=== PATIENT | female | born 1925 | race Caucasian/White ===

== ENCOUNTER 2016-11-29 14:15 | Inpatient (IN) | payer MEDICARE ==
[~2016-11-29] VITALS: Ht 160 cm; Wt 60.5 kg
[2016-11-30] MEDS ORDERED: GLIM1TAB PO ×2 (11:19)
[2016-11-30] MEDS ORDERED: GABA600T PO (11:19)
[2016-11-30] MEDS ORDERED: ASPI-110 PO (11:19)
[2016-11-30] MEDS ORDERED: VITA10002 PO (11:19)
[2016-11-30] MEDS ORDERED: LISI10TA3 PO (11:19)
[2016-11-30] MEDS ORDERED: OMEP40CA2 PO (11:19)
[2016-11-30] MEDS ORDERED: METF850T PO (11:19)
[2016-11-30] MEDS ORDERED: MULT1TAB PO (11:19)
[2016-11-30] MEDS ORDERED: ASCO1CAP PO (11:19)
[2016-11-30] MEDS ORDERED: VITA20003 PO (11:19)
[2016-11-30] MEDS ORDERED: AMLO2.5T PO (11:19)
[2016-11-30] MEDS ORDERED: ATOR20TA15 PO (11:19)
[2016-11-30] MEDS ORDERED: LEVO88TA2 PO (11:19)
[2016-12-07] VITALS (11 sets, daily range): BP systolic 108–140; BP diastolic 46–63; PULSE 62–102; RESP 16–20; TEMP 97.5–98; O2SAT 93–100
[2016-12-07] MEDS ORDERED: ePHEDrine/NS 25 MG/5 ML SYR IV ONE (12:00)
[2016-12-07] MEDS ORDERED: LACTATED RINGER'S 1000 ML INJ 1,000 ML IV ONE (12:00)
[2016-12-07] MEDS ORDERED: PROPOFOL 200 MG/20 ML AMP IV ONE (12:00)
[2016-12-07] MEDS ORDERED: VECURONIUM BROMIDE 20 MG VIAL IV ONE (12:00)
[2016-12-07] MEDS ORDERED: ALVIMOPAN 12 MG CAPSULE - On Call PO SCH (12:00)
[2016-12-07] MEDS ORDERED: DEXT 5%-NACL 0.9% 1000 ML INJ 1,000 ML IV SCH (12:00)
[2016-12-07] MEDS ORDERED: ONDANSETRON HCL 4 MG/2 ML VIAL IV PUSH ONE (12:00)
[2016-12-07] MEDS ORDERED: NEOSTIGMINE 3 MG/3 ML SYR IV ONE (12:00)
[2016-12-07] MEDS ORDERED: PHENYLEPH/NS 1000 MCG/10 ML SYR IV ONE (12:00)
[2016-12-07] MEDS ORDERED: METRONIDAZOLE 500 MG/100 ML ISONTONIC SOLN IV SCH (12:15)
[2016-12-07] MEDS ORDERED: LACTATED RINGER'S 1000 ML IV PRN (12:15)
[2016-12-07] MEDS ORDERED: SODIUM CHLORID 0.9% 500 ML IV PRN (12:15)
[2016-12-07] MEDS ORDERED: POVIDONE IODINE 5% (ANTISEPSIS KIT) 4 APPLICATIONS EACH NARE PRN (12:15)
[2016-12-07] MEDS ORDERED: CHLORHEXIDINE GLUCONATE 2 % 1 PACK (2 CLOTHS) TOPICAL PRN (12:15)
[2016-12-07] MEDS ORDERED: ceFAZolin 1,000 MG/NS 100 ML IV SCH ×2 (12:15)
[2016-12-07] MEDS ORDERED: METOPROLOL TARTRATE 25 MG TAB PO PRN (12:15)
[2016-12-07] MEDS: D5-LR + KCL 20 MEQ INJ 1,000 ML IV SCH ×2 (15:09→23:10)
[2016-12-07] MEDS ORDERED: DO NOT ADM ANY ANTICOAGULANT DRUGS PRN (15:10)
[2016-12-07] MEDS ORDERED: ONDANSETRON HCL 4 MG/2 ML VIAL IV PRN (15:15)
[2016-12-07] MEDS ORDERED: MORPHINE SULFATE 30 MG/30 ML PCA IV SCH (15:15)
[2016-12-07] MEDS ORDERED: NALOXONE HCL 0.4 MG/ML AMP IV PRN (15:15)
[2016-12-07] MEDS ORDERED: ENALAPRILAT 1.25 MG/ML VIAL IV PRN (15:15)
[2016-12-07] MEDS ORDERED: POTASSIUM CHLOR 20 MEQ PREMIX 100 ML IV PRN (15:15)
[2016-12-07] MEDS ORDERED: ZOLPIDEM TARTRATE 5 MG TAB PO PRN (15:15)
[2016-12-07] MEDS ORDERED: Post-op Orders (for Pharmacy) MISC XX ONE (15:15)
[2016-12-07] MEDS ORDERED: ACETAMINOPHEN/HYDROcodone 325 MG/5 MG TAB PO PRN ×2 (15:15)
[2016-12-07] MEDS ORDERED: GLUCAGON 1 MG/ML VIAL OTHER PRN (15:15)
[2016-12-07] MEDS ORDERED: DEXTROSE 50% IN WATER 50 ML VIAL(D50) IV PUSH PRN (15:15)
[2016-12-07] MEDS ORDERED: POTASSIUM CHLOR 40 MEQ PREMIX 100 ML IV PRN (15:15)
[2016-12-07] MEDS ORDERED: BENZOCAINE 6 MG/MENTHOL 10 MG LOZENGE BUCCAL PRN (15:15)
[2016-12-07] MEDS ORDERED: SODIUM CHLORIDE 0.9% FLUSH 10 ML FLUSH IV FLUSH PRN (15:15)
[2016-12-07] MEDS ORDERED: fentaNYL CITRATE 250 MCG/5 ML AMP ONE (15:19)
[2016-12-07 15:59] LABS: AUTOMATED NEUTROPHIL # 14.9 TH/MM3 (1.8-7.7); BASOPHIL # 0.1 TH/MM3 (0-0.2); BASOPHIL % 0.5 % (0.0-2.0); EOSINOPHIL # 0.1 TH/MM3 (0-0.4); EOSINOPHIL % 0.8 % (0.0-4.0); HEMATOCRIT 31.9 % (35.0-46.0); HEMO FLAGS DIFF FINAL; LYMPH % 15.4 % (9.0-44.0); LYMPHOCYTE # 2.9 TH/MM3 (1.0-4.8); MEAN CELL VOLUME 86.1 FL (80.0-100.0); MEAN CORPUSCULAR HEMOGLOBIN 27.7 PG (27.0-34.0); MEAN CORPUSCULAR HGB CONC 32.2 % (32.0-36.0); MONO % 3.1 % (0.0-8.0); NEUT % 80.2 % (16.0-70.0); PLATELET COUNT 297 TH/MM3 (150-450); RED CELL DISTRIBUTION WIDTH 14.2 % (11.6-17.2); WHITE BLOOD COUNT 18.6 TH/MM3 (4.0-11.0)
[2016-12-07] MEDS: INSULIN NovoLIN REGULAR SUPPLEMENTAL SCALE SQ SCH ×2 (16:00→21:00)
[2016-12-07] MEDS ORDERED: PILL SPLITTER OTHER PRN (16:00)
[2016-12-07 16:17] LABS: POTASSIUM 3.7 MEQ/L (3.5-5.1)
[2016-12-07] MEDS: METOCLOPRAMIDE HCL 10 MG/2 ML VIAL IVS SCH (18:02)
[2016-12-07] MEDS: INSULIN HUMAN REGULAR 1,000 UNITS/10 ML VIAL SQ PRN (18:02)
[2016-12-07] MEDS: ATORVASTATIN 20 MG TAB PO SCH ×2 (20:45→20:53)
[2016-12-07] MEDS: SODIUM CHLORIDE 0.9% FLUSH 10 ML FLUSH IV FLUSH SCH (20:45)
[2016-12-07] MEDS: FUROSEMIDE 20 MG/2 ML VIAL IV SCH (20:45)
[2016-12-07] MEDS: GABAPENTIN 300 MG CAP PO SCH ×2 (20:45→20:53)
--- NOTE | 2016-12-07 21:16 | MP ---
cc: KELY IBARRA MD, HASSAN MD ARGUELLO, MARTHA M.D. 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 ANESTHESIA General endotracheal ESTIMATED BLOOD LOSS 25 mL. OPERATING TIME 50 minutes. 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 For this reason colectomy was recommended. Preoperative CT scan was negative for metastatic disease. 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 No metastases were palpable in the liver, gallbladder, uterus, ovaries or the peritoneal cavity. The remainder of the colon and small bowel was all palpably normal. OPERATIVE TECHNIQUE The patient was placed on the table in supine position. After adequate general endotracheal anesthesia, the abdomen was prepped and draped in usual manner. Transverse infraumbilical skin incision was made on the right side of the abdomen, taken down through subcutaneous tissue and rectus muscles and peritoneal cavity was entered with the above-mentioned findings. The cecum was mobilized along its peritoneal reflection and the ascending colon was likewise mobilized. There was a piece of omentum stuck to the cecum and the area of the omentum was divided with electrocautery that 2 inches from where it was stuck to the cecum. The serosal surface of the cecum was puckered where the tumor was located. There did not appear to be definite full-thickness tumor present. There were no palpable lymph nodes. Once the cecum was mobilized and the ascending colon was mobilized and the transverse colon lesser sac was entered posterior to the stomach, the right portion of the transverse colon was chosen for division. It was to the right of most of the middle colic branches and the marginal vessel was clamped, cut and ligated and the proximal transverse colon was divided with an Ethicon BRIGIDA 55 stapling device. Next, our attention was turned to the terminal ileum and the terminal ileum was cleared and the terminal ileum was divided between Mera clamps. Once this was done, the mesentery was opened along the small bowel and then the ileocolic vessels were doubly clamped, cut and doubly ligated at their origin. The specimen was then removed from the table. The anastomosis was made along the anti-mesenteric borders of the small bowel and the proximal transverse colon with an Ethicon BRIGIDA 55 stapling device and the colotomy was closed with a TX 60 blue staple height stapling device. Once this was done, the opening in the mesentery was approximated with running 3-0 Vicryl suture in a simple running manner. Hemostasis was maintained throughout with electrocautery and ligature. The bowel was replaced in abdominal cavity in an mangle roll operator manner and the omentum was wrapped around the anastomosis. The abdominal cavity was then closed in layers using double-stranded #1 PDS for the posterior rectus sheath. The muscle layers were then irrigated thoroughly with saline solution, aspirated dry and then the anterior rectus sheath was closed with double-stranded #1 PDS as well and the subcutaneous tissue was irrigated thoroughly with a liter of saline solution, aspirated dry. Skin was closed with running 3-0 Vicryl subcuticular suture and a dressing was applied. Sponge, needle and instrument counts were reported as correct. Estimated blood loss was 25 mL. Operating time was 50 minutes. The patient tolerated the procedure well and left the operating room in good condition. MD MARC Aguirre/ /3:16 PM /9:03 PM
[2016-12-07] MEDS: PCA - TOTAL MG MORPHINE DELIVERED PER SHIFT SCH (22:00)
[2016-12-07] MEDS: metroNIDAZOLE 500 MG INJ 100 ML IV SCH (22:05)
[2016-12-08] VITALS (15 sets, daily range): BP systolic 112–159; BP diastolic 59–70; PULSE 72–97; RESP 16–18; TEMP 96.9–98.9; O2SAT 94–98
[2016-12-08] MEDS: metroNIDAZOLE 500 MG INJ 100 ML IV SCH ×2 (04:49→11:46)
[2016-12-08] MEDS: LEVOTHYROXINE SODIUM 88 MCG TAB PO SCH (05:11)
[2016-12-08] MEDS: METOCLOPRAMIDE HCL 10 MG/2 ML VIAL IVS SCH ×5 (05:11→23:25)
[2016-12-08] MEDS: PCA - TOTAL MG MORPHINE DELIVERED PER SHIFT SCH ×3 (05:30→21:40)
[2016-12-08 05:45] LABS: AUTOMATED NEUTROPHIL # 12.8 TH/MM3 (1.8-7.7); BASOPHIL % 0.1 % (0.0-2.0); HEMATOCRIT 30.8 % (35.0-46.0); HEMO FLAGS DIFF FINAL; LYMPHOCYTE # 1.3 TH/MM3 (1.0-4.8); MEAN CORPUSCULAR HEMOGLOBIN 27.9 PG (27.0-34.0); MEAN CORPUSCULAR HGB CONC 32.4 % (32.0-36.0); MONO % 4.7 % (0.0-8.0); NEUT % 86.2 % (16.0-70.0); PLATELET COUNT 321 TH/MM3 (150-450); RED BLOOD COUNT 3.58 MIL/MM3 (4.00-5.30); RED CELL DISTRIBUTION WIDTH 14.1 % (11.6-17.2); WHITE BLOOD COUNT 14.9 TH/MM3 (4.0-11.0)
[2016-12-08] MEDS: INSULIN NovoLIN REGULAR SUPPLEMENTAL SCALE SQ SCH ×4 (06:15→21:00)
[2016-12-08 06:18] LABS: BICARBONATE 27.8 MEQ/L (21.0-32.0); POTASSIUM 4.4 MEQ/L (3.5-5.1)
--- NOTE | 2016-12-08 08:20 | HHI.PR ---
Subjective Remarks No N or V. Not much pain Objective Vital Signs Date Time Temp Pulse Resp B/P Pulse Ox O2 Delivery O2 Flow Rate FiO2 12/08/16 08:05 98 12/08/16 06:26 78 12/08/16 05:30 16 12/08/16 05:28 72 12/08/16 05:01 95 12/08/16 04:00 72 12/08/16 03:18 74 12/08/16 03:15 98.1 78 16 112/59 94 12/08/16 02:04 77 12/08/16 01:01 74 12/08/16 00:00 72 12/07/16 23:37 97.5 97 16 108/54 94 12/07/16 23:00 70 12/07/16 22:00 80 12/07/16 22:00 16 12/07/16 21:00 78 12/07/16 20:00 102 12/07/16 19:55 97.5 96 16 140/59 93 12/07/16 19:00 85 12/07/16 18:00 72 12/07/16 17:00 76 12/07/16 16:30 97.7 62 20 113/46 100 12/07/16 16:00 98.7 64 18 107/53 99 Nasal Cannula 2 12/07/16 15:55 20 12/07/16 15:45 56 18 115/54 100 Nasal Cannula 2 12/07/16 15:30 55 18 111/42 100 Nasal Cannula 2 12/07/16 15:13 98.7 63 18 125/60 100 Nasal Cannula 2 12/07/16 12:15 98.0 82 18 126/63 99 I/O 12/07/16 12/07/16 12/07/16 12/08/16 12/08/16 12/08/16 07:00 15:00 23:00 07:00 15:00 23:00 Intake Total 2147 ml 1640 ml Output Total 475 ml 1250 ml Balance 1672 ml 390 ml Intake Oral 120 ml IV Total 527 ml 1640 ml Other 1500 ml Output Urine Total 450 ml 1250 ml Estimated Blood Loss 25 ml # Bowel Movements 0 Result Diagram: 12/08/16 0418 12/08/16 0418 Objective Remarks VS-S Abd: soft,dressing dry Labs-OK I&Os-OK Assessment and Plan Assessment and Plan Stable POD#1 Transfer,decrease IVs.OOB,CLD. D/C tele Oseas Ibarra MD Dec 08, 2016 08:19
[2016-12-08] MEDS ORDERED: ALVIMOPAN 12 MG CAPSULE - Post-op dosing PO SCH (09:00)
[2016-12-08] MEDS: FUROSEMIDE 20 MG/2 ML VIAL IV SCH ×2 (09:15→20:33)
[2016-12-08] MEDS: SODIUM CHLORIDE 0.9% FLUSH 10 ML FLUSH IV FLUSH SCH ×2 (09:15→21:39)
[2016-12-08] MEDS: amLODIPine BESYLATE 5 MG TAB PO SCH (09:15)
[2016-12-08] MEDS: GABAPENTIN 300 MG CAP PO SCH ×2 (09:16→20:33)
[2016-12-08] MEDS: LISINOPRIL 10 MG TAB PO SCH (09:16)
[2016-12-08] MEDS: ALVIMOPAN 12 MG CAPSULE PO SCH ×2 (09:16→20:33)
[2016-12-08] MEDS: D5-LR + KCL 20 MEQ INJ 1,000 ML IV SCH ×3 (09:17→16:39)
[2016-12-08] MEDS: PANTOPRAZOLE SODIUM 40 MG VIAL IVP SCH (09:23)
[2016-12-08] MEDS: INSULIN HUMAN REGULAR 1,000 UNITS/10 ML VIAL SQ PRN ×2 (11:43→16:38)
[2016-12-08] MEDS: ATORVASTATIN 20 MG TAB PO SCH (20:33)
[2016-12-09] VITALS: BP 151/66; PULSE 76; RESP 18; TEMP 97.3; O2SAT 96
[2016-12-09 04:00] VITALS: BP 158/77; PULSE 83; RESP 18; TEMP 97.9; O2SAT 96
[2016-12-09] MEDS: D5-LR + KCL 20 MEQ INJ 1,000 ML IV SCH ×2 (05:15→16:23)
[2016-12-09] MEDS: PCA - TOTAL MG MORPHINE DELIVERED PER SHIFT SCH ×2 (05:15→13:07)
[2016-12-09] MEDS: METOCLOPRAMIDE HCL 10 MG/2 ML VIAL IVS SCH ×3 (05:15→16:16)
[2016-12-09] MEDS: LEVOTHYROXINE SODIUM 88 MCG TAB PO SCH (05:16)
[2016-12-09] MEDS: INSULIN NovoLIN REGULAR SUPPLEMENTAL SCALE SQ SCH ×4 (05:23→21:00)
[2016-12-09 06:57] LABS: AUTOMATED NEUTROPHIL # 10.6 TH/MM3 (1.8-7.7); BASOPHIL % 0.3 % (0.0-2.0); EOSINOPHIL # 0.1 TH/MM3 (0-0.4); HEMO FLAGS DIFF FINAL; LYMPHOCYTE # 2.4 TH/MM3 (1.0-4.8); MEAN CELL VOLUME 85.3 FL (80.0-100.0); MEAN CORPUSCULAR HEMOGLOBIN 28.3 PG (27.0-34.0); MEAN CORPUSCULAR HGB CONC 33.1 % (32.0-36.0); MONO % 6.6 % (0.0-8.0); NEUT % 75.1 % (16.0-70.0); PLATELET COUNT 288 TH/MM3 (150-450); RED BLOOD COUNT 3.51 MIL/MM3 (4.00-5.30); RED CELL DISTRIBUTION WIDTH 14.1 % (11.6-17.2); WHITE BLOOD COUNT 14.2 TH/MM3 (4.0-11.0)
[2016-12-09 07:26] LABS: BICARBONATE 29.6 MEQ/L (21.0-32.0); POTASSIUM 3.6 MEQ/L (3.5-5.1)
[2016-12-09 07:30] VITALS: BP 148/68; PULSE 85; RESP 19; TEMP 98.8; O2SAT 94
[2016-12-09] MEDS: SODIUM CHLORIDE 0.9% FLUSH 10 ML FLUSH IV FLUSH SCH ×2 (09:00→22:21)
[2016-12-09] MEDS: ALVIMOPAN 12 MG CAPSULE PO SCH ×2 (09:53→22:10)
[2016-12-09] MEDS: amLODIPine BESYLATE 5 MG TAB PO SCH (09:53)
[2016-12-09] MEDS: PANTOPRAZOLE SODIUM 40 MG VIAL IVP SCH (09:53)
[2016-12-09] MEDS: GABAPENTIN 300 MG CAP PO SCH ×2 (09:53→22:11)
[2016-12-09] MEDS: LISINOPRIL 10 MG TAB PO SCH (09:53)
[2016-12-09] MEDS: FUROSEMIDE 20 MG/2 ML VIAL IV SCH (09:54)
[2016-12-09 12:00] VITALS: BP 121/58; PULSE 91; RESP 18; TEMP 98.1; O2SAT 95
--- NOTE | 2016-12-09 14:33 | HHI.PR ---
Subjective Remarks No N or V. Not much pain. No BMs Objective Vital Signs Date Time Temp Pulse Resp B/P Pulse Ox O2 Delivery O2 Flow Rate FiO2 12/09/16 12:00 98.1 91 18 121/58 95 12/09/16 07:30 98.8 85 19 148/68 94 12/09/16 05:15 4 12/09/16 04:00 97.9 83 18 158/77 96 12/09/16 00:00 97.3 76 18 151/66 96 12/08/16 21:40 18 12/08/16 20:00 98.1 84 18 159/70 94 12/08/16 16:00 96.9 79 18 137/64 95 12/08/16 15:34 97 21 I/O 12/08/16 12/08/16 12/08/16 12/09/16 12/09/16 12/09/16 06:59 14:59 22:59 06:59 14:59 22:59 Intake Total 1640 ml 1457 ml 660 ml 1557 ml 1500 ml Output Total 1250 ml 930 ml 1675 ml 850 ml 1000 ml Balance 390 ml 527 ml -1015 ml 707 ml 500 ml Intake Oral 480 ml 660 ml 120 ml 740 ml IV Total 1640 ml 977 ml 1437 ml 760 ml Output Urine Total 1250 ml 930 ml 1675 ml 850 ml 1000 ml # Bowel Movements 0 0 Result Diagram: 12/09/1652612/09/16526 Objective Remarks VS-S Abd: soft,dressing off. Wound clean Labs-OK I&Os-OK Assessment and Plan Assessment and Plan Stable POD#2 Ambulate in calvo. decrease IVs,Reg diet tomorrow Oseas Ibarra MD Dec 09, 2016 14:33
[2016-12-09 16:00] VITALS: BP 144/69; PULSE 99; RESP 18; TEMP 97.5; O2SAT 99
[2016-12-09 20:00] VITALS: BP 131/61; PULSE 91; RESP 20; TEMP 97.4; O2SAT 95
[2016-12-09] MEDS: ATORVASTATIN 20 MG TAB PO SCH (22:10)
[2016-12-10] VITALS: BP 130/60; PULSE 80; RESP 20; TEMP 97.4; O2SAT 95
[2016-12-10] MEDS: METOCLOPRAMIDE HCL 10 MG/2 ML VIAL IVS SCH ×3 (00:22→11:44)
[2016-12-10] MEDS: LEVOTHYROXINE SODIUM 88 MCG TAB PO SCH (06:25)
[2016-12-10] MEDS: INSULIN NovoLIN REGULAR SUPPLEMENTAL SCALE SQ SCH ×2 (06:30→11:00)
[2016-12-10 07:56] VITALS: BP 139/66; PULSE 80; RESP 19; TEMP 97.5; O2SAT 95
[2016-12-10] MEDS: PANTOPRAZOLE SODIUM 40 MG VIAL IVP SCH (08:59)
[2016-12-10] MEDS: GABAPENTIN 300 MG CAP PO SCH (09:00)
[2016-12-10] MEDS: amLODIPine BESYLATE 5 MG TAB PO SCH (09:00)
[2016-12-10] MEDS: SODIUM CHLORIDE 0.9% FLUSH 10 ML FLUSH IV FLUSH SCH (09:00)
[2016-12-10] MEDS: ALVIMOPAN 12 MG CAPSULE PO SCH (09:00)
[2016-12-10] MEDS: LISINOPRIL 10 MG TAB PO SCH (09:04)
[2016-12-10 11:25] VITALS: O2SAT 98
[2016-12-10] MEDS: INSULIN HUMAN REGULAR 1,000 UNITS/10 ML VIAL SQ PRN (11:49)
[2016-12-10 12:00] VITALS: BP 127/71; PULSE 93; RESP 19; TEMP 98; O2SAT 98
[2016-12-10] MEDS: D5-LR + KCL 20 MEQ INJ 1,000 ML IV SCH (13:39)
[2016-12-10 16:00] VITALS: BP 125/60; PULSE 95; RESP 18; TEMP 97.8; O2SAT 95
--- NOTE | 2016-12-10 16:37 | HHI.DCPOC ---
Discharge Care Plan Diagnosis: (1) Cancer, colon (2) Status post partial resection of colon Your Health Problems Are: Incision/Drains Appetite Changes Irregular Bowel Function Exercise Tolerance Goals to Promote Your Health * To prevent worsening of your condition and complications * To maintain your health at the optimal level Directions to Meet Your Goals Take your medications as prescribed Follow your dietary instruction Follow activity as directed Keep your appointments as scheduled Take your immunizations and boosters as scheduled If your symptoms worsen call your PCP, if no PCP go to Urgent Care Center or Emergency Room Smoking is Dangerous to Your Health. Avoid second hand smoke Call the 24-hour hour crisis hotline for domestic abuse at Oseas Ibarra MD Dec 10, 2016 16:37
[2016-12-10] MEDS ORDERED: HYDR-3533 PO (17:21)
== END 2016-12-10 18:01 | disposition home or self-care (01) | DRG 331 ==
LOC: HSDI 12-07 11:32 → HCIN 12-07 16:07 → N07A 12-08 11:13
PROVIDERS: ADMIT Colon & Rectal Surgery; ATTEND Colon & Rectal Surgery
PROC: 0DBL0ZZ Excision of Transverse Colon, Open Approach (ICD-10-PCS; 2016-12-07)
PROC: 0DTK0ZZ Resection of Ascending Colon, Open Approach (ICD-10-PCS; principal; 2016-12-07 13:31)
DX: C18.0 Malignant neoplasm of cecum (principal); E11.42 Type 2 diabetes mellitus with diabetic polyneuropathy; I10 Essential (primary) hypertension; E78.5 Hyperlipidemia, unspecified; E03.9 Hypothyroidism, unspecified; K21.9 Gastro-esophageal reflux disease without esophagitis; Z87.891 Personal history of nicotine dependence
CPT/HCPCS: 76937; 80048; 82948; 85025; 86850; 86900; 86901; 88309; 94150; C9113; J0690; J1815; J1940; J2270; J2370; J2405; J2710; J2765; J3010; J3480; J7120

== ENCOUNTER → 2016-11-30 | Outpatient (CLI) | payer MEDICARE ==
[~2016-11-30] MED LIST: AMLO2.5T PO; ASCO1CAP PO; ASCO500C PO; ASPI-110 PO; ASPI81TA82 PO; ATEN-102 PO; ATOR20TA15 PO; ATOR20TA42 PO; GABA600T PO; GLIM1TAB PO; GLUCTAB PO; HYDR-3533 PO; LEVO75TA3 PO; LEVO88TA2 PO; LISI-360 PO; LISI10TA3 PO; METF850T PO; MULT1TAB PO; NEUR600T PO; OMEP20TA39 PO; OMEP40CA2 PO; VITA-13 PO; VITA10002 PO; VITA20003 PO; [UNRECOGNIZED DRUG - CODE] OR
[2016-11-30 10:44] LABS: AUTOMATED NEUTROPHIL # 6.9 TH/MM3 (1.8-7.7); BASOPHIL # 0.1 TH/MM3 (0-0.2); BASOPHIL % 0.9 % (0.0-2.0); EOSINOPHIL # 0.4 TH/MM3 (0-0.4); EOSINOPHIL % 4.1 % (0.0-4.0); HEMATOCRIT 33.1 % (35.0-46.0); HEMO FLAGS DIFF FINAL; LYMPH % 22.1 % (9.0-44.0); LYMPHOCYTE # 2.3 TH/MM3 (1.0-4.8); MEAN CELL VOLUME 85.9 FL (80.0-100.0); MEAN CORPUSCULAR HEMOGLOBIN 28.9 PG (27.0-34.0); MEAN CORPUSCULAR HGB CONC 33.7 % (32.0-36.0); MONO % 6.4 % (0.0-8.0); NEUT % 66.5 % (16.0-70.0); PLATELET COUNT 337 TH/MM3 (150-450); RED BLOOD COUNT 3.85 MIL/MM3 (4.00-5.30); RED CELL DISTRIBUTION WIDTH 14.3 % (11.6-17.2); WHITE BLOOD COUNT 10.3 TH/MM3 (4.0-11.0)
[2016-11-30 10:45] LABS: APTT (PATIENT) 30.4 SEC (24.3-30.1); PROTHROMBIN TIME - PATIENT 11.3 SEC (9.8-11.6)
[2016-11-30 11:11] LABS: ANION GAP 8 MEQ/L (5-15); AST (GOT) 12 U/L (15-37); BICARBONATE 28.9 MEQ/L (21.0-32.0); BLOOD UREA NITROGEN 14 MG/DL (7-18); CHLORIDE 102 MEQ/L (98-107); GLOMERULAR FILTRATION RATE 57 ML/MIN (>89); GLUCOSE,FASTING 137 MG/DL (74-99); POTASSIUM 4.1 MEQ/L (3.5-5.1); SODIUM (NA) 139 MEQ/L (136-145)
[2016-11-30 11:13] LABS: ALKALINE PHOSPHATASE 118 U/L (45-117); ALT (GPT) 18 U/L (10-53); TOTAL BILIRUBIN ADULT 0.6 MG/DL (0.2-1.0)
[2016-11-30 11:33] LABS: BACTERIA, URINE RARE /hpf; BLOOD, URINE NEG (NEG); COMMENT (UR) CULTURE INDICATED; CULTURE IF INDICATED CULTURE INDICATED; GLUCOSE,URINE NEG (NEG); HYALINE CAST, URINE 8 /lpf (RARE); KETONE, URINE NEG (NEG); MUCUS URINE FEW /lpf (OCC); NITRITE,URINE NEG (NEG); SQUAMOUS EPITHELIAL CELL URINE <1 /hpf (0-5); TRANSITIONAL EPI CELLS, URINE <1 /hpf; URINE COLOR YELLOW (YELLW/STRAW)
--- NOTE | 2016-11-30 13:00 | RADRPT ---
EXAM DATE/TIME: 11/30/2016 11:13 [place] COMPARISON: No previous studies available for comparison. INDICATIONS : Evaluate for pneumonia, pneumothorax or communicable disease. MEDICAL HISTORY : Hypertension. Diabetes mellitus type II. SURGICAL HISTORY : ENCOUNTER: Initial ACUITY: 1 day PAIN SCORE: 0/10 LOCATION: Bilateral chest FINDINGS: PA and lateral views of the chest demonstrate biapical minimal interstitial changes which appear professor/nurse anesthetist salazar. Lungs are otherwise clear of acute infiltrate. No effusions. Heart size is normal. 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 CONCLUSION: 1. Mild interstitial changes in the apices appear chronic and may represent some degree of scarring. 2. Lungs are otherwise clear with no acute infiltrate or effusion. Gerardo Valencia MD on November 30, 2016 at 12:52 Board Certified Radiologist. This report was verified electronically.
--- NOTE | 2016-12-01 09:56 | EKG ---
Date Performed: 11/30/2016 Time Performed: 10:05:07 PTAGE: 89 years EKG: NORMAL Sinus rhythm CANNOT EXCLUDE PRIOR INFERIOR INFARCT LOW PRECORDIAL LEAD VOLTAGE ABNORMAL ECG PREVIOUS TRACING : 11/30/2016 10.04 DOCTOR: Duong Coronado Interpretating Date/Time 12/01/2016 09:55:05
== END ==
LOC: CPRE 09:36
PROVIDERS: ATTEND Colon & Rectal Surgery
DX: Z01.812 Encounter for preprocedural laboratory examination (principal); Z01.811 Encounter for preprocedural respiratory examination; Z01.810 Encounter for preprocedural cardiovascular examination; C18.0 Malignant neoplasm of cecum; R94.31 Abnormal electrocardiogram [ECG] [EKG]; R82.99 Other abnormal findings in urine; Z79.01 Long term (current) use of anticoagulants
CPT/HCPCS: 36415; 71020; 80053; 81001; 82378; 85025; 85610; 85730; 87086; 93005